=== PATIENT | male | born 1970 | race Native Hawaiian/Other Pacific Islander ===

== ENCOUNTER 2020-05-05 09:25 | Emergency (ER) | payer OTHER ==
[~2020-05-05] VITALS: Ht 175.3 cm; Wt 73.5 kg
[2020-05-05 11:00] VITALS: BP 151/98; TEMP 98.9
== END 2020-05-05 11:00 | disposition home or self-care (01) ==
LOC: ED 09:25
DX: R51.9 Headache, unspecified (principal)
CPT/HCPCS: 96372; 99283; J1885

== ENCOUNTER 2020-06-02 14:46 | Emergency (ER) | payer OTHER ==
[~2020-06-02] VITALS: Ht 175.3 cm; Wt 73.5 kg
[2020-06-02 15:02] VITALS: TEMP 98.4
[2020-06-02 15:49] LABS: PLATELET COUNT 435 K/uL (142-355)
[2020-06-02 16:17] LABS: POTASSIUM 3.9 mmol/L (3.6-5.2)
[2020-06-02 18:28] VITALS: BP 128/78
== END 2020-06-02 18:29 | disposition home or self-care (01) ==
LOC: ED 14:46
PROVIDERS: Emergency Medicine Emergency Medical Services
DX: L03.113 Cellulitis of right upper limb (principal); F15.10 Other stimulant abuse, uncomplicated
CPT/HCPCS: 80048; 80307; 81000; 85027; 87490; 87590; 96360; 96361; 96365; 99284; J3370